=== PATIENT | male | born 1990 | race Caucasian/White ===

== ENCOUNTER 2019-03-29 20:19 | Emergency (ER) | payer MEDICAID ==
[~2019-03-29] VITALS: Ht 182.9 cm; Wt 77.3 kg
[2019-03-29 20:34] VITALS: BP 122/72
[2019-03-29] MEDS ORDERED: DEXAMETHASONE 4 MG TABLET PO ONE (21:00)
[2019-03-29] MEDS ORDERED: DEXAMETHASONE 4 MG TABLET ONE (21:20)
== END 2019-03-29 21:49 | disposition home or self-care (01) ==
LOC: ED 21:00
DX: J00 Acute nasopharyngitis [common cold] (principal); B34.9 Viral infection, unspecified
CPT/HCPCS: 71046; 99283